=== PATIENT | male | born 1960 | race Caucasian/White ===

== ENCOUNTER 2016-08-23 16:53 | Emergency (ER) | payer OTHER ==
[~2016-08-23] VITALS: Ht 177.8 cm; Wt 75.2 kg
[~2016-08-23 16:53] MED LIST: ADVIL,NUPRIN,M200 MG PO; BACTRIM,SEPT1 TABLET PO; CLONIDINE HCL0.1 MG PO; CYCLOBENZAPRINE10 MG PO; FENTANYL1 EAC5 TD; FLEXERIL10 MG PO; HYDROMORPHONE HC4 MG PO; INDOCIN25 MG PO; INDOMETHACIN50 MG PO; JANTOVEN2.5 MG; KALETRA 200/501 TAB PO; KEFLEX500 MG PO; LIDODERM 5% P1 PATCH TD; LISINOPRIL40 MG PO; LYRICA75 MG PO; METHADONE10 MG PO; METHADONE5 MG PO; MOTRIN400 MG PO; MOTRIN600 MG PO; NAPROSYN500 MG PO; NAPROXEN500 MG PO; NEXIUM40 MG PO; NICOTINE PATCH1 EAC1 TD; NICOTROL INHALE10 MG IH; NOHOMEMEDS; NORCO 5/3251 TABLET PO; OXYCODONE HCL15 MG PO; OXYCODONE HCL5 MG PO; OXYCODONE30 MG; PANTOPRAZOLE SO40 MG PO; PERCOCET 5/31 TABLET PO; PREDNISONE20 MG PO; PROAIR HFA8.5 GM IH; TRAMADOL HCL50 MG PO; TRUVADA1 TABLET PO; ULTRAM50 MG PO; VOLTAREN 1% GE100 GM TP; ZOFRAN ODT4 MG PO; ZOFRAN4 MG PO
[2016-08-23 19:59] LABS: MCH 30.5 PG (29.0-34.0); MCHC 34.4 G/DL (30.0-36.0); MCV 88.8 FL (86-99); MEAN PLAT.VOLUME 10.6 uM^3 (9.0-12.4); PLATELET COUNT 108 K/uL (156-360); RBC DIS.WIDTH-CV 14.2 % (11.8-14.6); RBC DIS.WIDTH-SD 45.1 % (39-53); RED BLOOD COUNT 4.39 M/uL (4.00-5.50); WHITE BLOOD COUNT 5.7 K/uL (4.1-10.2)
[2016-08-23 20:07] LABS: CHLORIDE 102 mEq/L (99-109); POTASSIUM 3.7 mEq/L (3.7-5.4); SODIUM 139 mEq/L (136-147)
[2016-08-23 20:09] LABS: GLUCOSE 126 mg/dL (70-99)
[2016-08-23 20:10] LABS: ANION GAP 11 MEQ/L (2-14)
[2016-08-23 20:12] LABS: GFR ESTIMATE (CALCULATED) > 59 mL/min/
[2016-08-23 20:13] LABS: UREA NITROGEN (BUN) 14 mg/dL (9-23)
[2016-08-23 20:53] LABS: ADD MIUA? NO; BILIRUBIN NEGATIVE; BLOOD NEGATIVE; COLOR YELLOW ((YELLOW)); GLUCOSE (STRIP) NEGATIVE; KETONES NEGATIVE; LEUKOCYTES NEGATIVE; NITRITE NEGATIVE; PROTEIN (STRIP) NEGATIVE; SPECIFIC GRAVITY 1.021 (1.000-1.030); UCUL ADDED? NO
[2016-08-23 23:50] VITALS: BP 146/74
== END 2016-08-24 | disposition home or self-care (01) ==
LOC: EME 16:53
PROVIDERS: Physician Assistant
DX: S16.1XXA Strain of muscle, fascia and tendon at neck level, initial encounter (principal); M54.5 Low back pain; M79.604 Pain in right leg; R51 Headache; V19.49XA Pedal cycle driver injured in collision with other motor vehicles in traffic accident, initial encounter; Y93.55 Activity, bike riding; G89.29 Other chronic pain; F17.200 Nicotine dependence, unspecified, uncomplicated; Z79.891 Long term (current) use of opiate analgesic
CPT/HCPCS: 70450; 72110; 72126; 80048; 81003; 85027; 99281; 99284; J3010; J3360; J7030

== ENCOUNTER 2016-11-13 22:56 | Emergency (ER) | payer OTHER ==
[~2016-11-13] VITALS: Ht 177.8 cm; Wt 72.8 kg
[2016-11-13] MEDS ORDERED: ULTRACET1 TABLET PO (23:46)
[2016-11-13] MEDS ORDERED: MOTRIN800 MG PO (23:46)
[2016-11-13] MEDS ORDERED: CIPRO500 MG PO (23:46)
[2016-11-13 23:55] VITALS: BP 123/74
== END 2016-11-14 00:05 | disposition home or self-care (01) ==
LOC: EME 22:56
DX: S81.812A Laceration without foreign body, left lower leg, initial encounter (principal); W26.8XXA Contact with other sharp object(s), not elsewhere classified, initial encounter; Z23 Encounter for immunization
CPT/HCPCS: 99281; 99284

== ENCOUNTER 2016-11-28 13:06 | Emergency (ER) | payer OTHER ==
[~2016-11-28] VITALS: Ht 177.8 cm; Wt 73.3 kg
[~2016-11-28 13:06] MED LIST changes: +CIPRO500 MG PO; +MOTRIN800 MG PO; +ULTRACET1 TABLET PO
[2016-11-28] MEDS ORDERED: KEFLEX500 MG PO (19:00)
[2016-11-28 19:47] VITALS: BP 176/84
== END 2016-11-28 19:49 | disposition home or self-care (01) ==
LOC: EME 13:06
DX: M79.89 Other specified soft tissue disorders (principal); M79.605 Pain in left leg; M25.562 Pain in left knee; Z48.02 Encounter for removal of sutures; Z98.890 Other specified postprocedural states; F17.200 Nicotine dependence, unspecified, uncomplicated
CPT/HCPCS: 73564; 93971; 99281; 99284; J3010

== ENCOUNTER 2017-01-14 12:07 | Emergency (ER) | payer OTHER ==
[~2017-01-14] VITALS: Ht 177.8 cm; Wt 68.1 kg
[2017-01-14] MEDS ORDERED: GABAPENTIN600 MG PO (13:43)
[2017-01-14] MEDS ORDERED: METHADONE10 MG PO (13:43)
[2017-01-14] MEDS ORDERED: QUETIAPINE FUMA50 MG PO (13:44)
[2017-01-14] MEDS ORDERED: ESCITALOPRAM OX20 MG PO (13:44)
[2017-01-14] MEDS ORDERED: LISINOPRIL-HCT1 EAC3 PO (13:44)
[2017-01-14] MEDS ORDERED: NAPROSYN500 MG PO (15:37)
[2017-01-14] MEDS ORDERED: FLEXERIL10 MG PO (15:37)
[2017-01-14 16:15] VITALS: BP 136/75
== END 2017-01-14 16:27 | disposition home or self-care (01) ==
LOC: EME 12:07
DX: S20.212A Contusion of left front wall of thorax, initial encounter (principal); S40.022A Contusion of left upper arm, initial encounter; S00.01XA Abrasion of scalp, initial encounter; S50.312A Abrasion of left elbow, initial encounter; S60.812A Abrasion of left wrist, initial encounter; W18.09XA Striking against other object with subsequent fall, initial encounter
CPT/HCPCS: 71020; 73080; 73090; 73110; 99281; 99285; J3010

== ENCOUNTER 2017-02-02 17:58 | Emergency (ER) | payer OTHER ==
[~2017-02-02] VITALS: Ht 177.8 cm; Wt 72.6 kg
[~2017-02-02 17:58] MED LIST changes: +ESCITALOPRAM OX20 MG PO; +GABAPENTIN600 MG PO; +LISINOPRIL-HCT1 EAC3 PO; +QUETIAPINE FUMA50 MG PO
[2017-02-02] MEDS ORDERED: VENTOLIN HFA18 GM IH (21:04)
[2017-02-02] MEDS ORDERED: PREDNISONE20 MG PO (21:04)
[2017-02-02] MEDS ORDERED: VIBRAMYCIN100 MG PO (21:04)
[2017-02-02 21:58] VITALS: BP 126/84
== END 2017-02-02 22:11 | disposition home or self-care (01) ==
LOC: EME 17:58
DX: S80.12XD Contusion of left lower leg, subsequent encounter (principal); S80.812D Abrasion, left lower leg, subsequent encounter; L08.9 Local infection of the skin and subcutaneous tissue, unspecified; J40 Bronchitis, not specified as acute or chronic; W23.0XXD Caught, crushed, jammed, or pinched between moving objects, subsequent encounter; F17.200 Nicotine dependence, unspecified, uncomplicated; Z71.6 Tobacco abuse counseling; I10 Essential (primary) hypertension; Z88.1 Allergy status to other antibiotic agents; Z96.652 Presence of left artificial knee joint
CPT/HCPCS: 71020; 73590; 94640; 99281; 99284; J3010; J7512

== ENCOUNTER 2017-05-13 18:46 | Emergency (ER) | payer OTHER ==
[~2017-05-13] VITALS: Ht 177.8 cm; Wt 74.2 kg
[~2017-05-13 18:46] MED LIST changes: +VENTOLIN HFA18 GM IH; +VIBRAMYCIN100 MG PO
[2017-05-13] MEDS ORDERED: MOBIC7.5 MG PO (20:53)
[2017-05-13] MEDS ORDERED: SKELAXIN800 MG PO (20:53)
[2017-05-13 21:17] VITALS: BP 140/80
== END 2017-05-13 21:17 | disposition home or self-care (01) ==
LOC: EME 18:46
DX: S80.02XA Contusion of left knee, initial encounter (principal); S39.012A Strain of muscle, fascia and tendon of lower back, initial encounter; W19.XXXA Unspecified fall, initial encounter; F17.200 Nicotine dependence, unspecified, uncomplicated
CPT/HCPCS: 73564; 99281; 99284; J1885; J3010

== ENCOUNTER → 2017-05-25 | Outpatient (CLI) | payer OTHER ==
[~2017-05-25] MED LIST changes: +MOBIC7.5 MG PO; +SKELAXIN800 MG PO
== END | disposition home or self-care (01) ==
LOC: RAD 19:34
DX: K40.90 Unilateral inguinal hernia, without obstruction or gangrene, not specified as recurrent (principal)
CPT/HCPCS: 76857

== ENCOUNTER 2017-06-04 16:55 | Emergency (ER) | payer OTHER ==
[~2017-06-04] VITALS: Ht 177.8 cm; Wt 76.2 kg
[2017-06-04 17:24] LABS: EOSINOPHIL (%) 0.5 % (0-5); HEMATOCRIT 38.4 % (38.0-50.0); IMMATURE GRANULOCYTE (%) 0.7 % (0.0-0.7); INSTRUMENT ABS NEUTROPHIL CT 4.8 K/uL; LYMPHOCYTE COUNT 0.5 K/uL (1.0-2.8); MCH 29.8 PG (29.0-34.0); MCHC 33.3 G/DL (30.0-36.0); MCV 89.3 FL (86-99); MONOCYTE (%) 11.9 % (3-12); MONOCYTE COUNT 0.7 K/uL (0-0.8); NEUTROPHIL (%) 79.1 % (45-76); NEUTROPHIL COUNT 4.8 K/uL (1.8-6.4); RBC DIS.WIDTH-SD 42.5 % (39-53)
[2017-06-04 17:31] LABS: AMYLASE 46 IU/L (1-118); CHLORIDE 99 mEq/L (99-109); POTASSIUM 4.1 mEq/L (3.7-5.4); SODIUM 135 mEq/L (136-147)
[2017-06-04 17:33] LABS: GLUCOSE 100 mg/dL (70-99)
[2017-06-04 17:34] LABS: ANION GAP 11 MEQ/L (2-14)
[2017-06-04 17:36] LABS: SERUM ETHYL ALCOHOL 11 mg/dL
[2017-06-04 17:37] LABS: GFR ESTIMATE (CALCULATED) > 59 mL/min/
[2017-06-04 17:38] LABS: UREA NITROGEN (BUN) 11 mg/dL (9-23)
[2017-06-04 17:40] LABS: LIPASE 16 U/L (1.0-51.0)
[2017-06-04 17:57] LABS: MEAN PLAT.VOLUME 10.1 uM^3 (9.0-12.4); PLAT.SUFFICIENCY DECREASED
[2017-06-04 18:41] LABS: ADD MIUA? NO; BILIRUBIN NEGATIVE; BLOOD NEGATIVE; COLOR YELLOW ((YELLOW)); GLUCOSE (STRIP) NEGATIVE; KETONES 5; LEUKOCYTES NEGATIVE; NITRITE NEGATIVE; PROTEIN (STRIP) NEGATIVE; UCUL ADDED? NO; UROBILINOGEN 0.2 MG/DL (0.2-1.0)
[2017-06-04 18:49] LABS: ADD MEDTOX COMMENT Y; AMPHETAMINE NEGATIVE (500 ng/mL); BARBITURATES NEGATIVE (200 ng/mL); BENZODIAZEPINES PRESUMPTIVE POSITIVE (150 ng/mL); COCAINE PRESUMPTIVE POSITIVE (150 ng/mL); INTERNAL CONTROLS VALID? YES; METHADONE PRESUMPTIVE POSITIVE (200 ng/mL); METHAMPHETAMINE NEGATIVE (500 ng/mL); OPIATES (MORPHINE) PRESUMPTIVE POSITIVE (100 ng/mL); OXYCODONE NEGATIVE (100 ng/mL); PHENCYCLIDINE NEGATIVE (25 ng/mL); PROPOXYPHENE NEGATIVE (300 ng/mL); THC CANNABINOIDS NEGATIVE (50 ng/mL); TRICYCLIC ANTIDEPRESSANTS NEGATIVE (300 ng/mL)
[2017-06-04 18:52] LABS: PLATELET COUNT 99 K/uL (156-360)
[2017-06-04 19:21] LABS: BENZODIAZEPINES, URINE SCREEN POSITIVE (200 ng/mL)
[2017-06-04 21:03] VITALS: BP 142/65
== END 2017-06-04 21:03 | disposition home or self-care (01) ==
LOC: EME
PROVIDERS: Emergency Medicine
PROC: 0HQ1XZZ Repair Face Skin, External Approach (ICD-10-PCS; principal; 2017-06-04)
DX: S01.112A Laceration without foreign body of left eyelid and periocular area, initial encounter (principal); S01.312A Laceration without foreign body of left ear, initial encounter; S00.01XA Abrasion of scalp, initial encounter; S30.0XXA Contusion of lower back and pelvis, initial encounter; F19.10 Other psychoactive substance abuse, uncomplicated; Y00.XXXA Assault by blunt object, initial encounter; Y92.512 Supermarket, store or market as the place of occurrence of the external cause; M79.89 Other specified soft tissue disorders; I10 Essential (primary) hypertension; B19.20 Unspecified viral hepatitis C without hepatic coma; G89.29 Other chronic pain; F17.200 Nicotine dependence, unspecified, uncomplicated
CPT/HCPCS: 70450; 71010; 72125; 72131; 73560; 73564; 73610; 80048; 81003; 82150; 83690; 84999; 85025; 86850; 86900; 86901; 99281; 99285; G0480

== ENCOUNTER 2017-10-24 14:33 | Emergency (ER) | payer OTHER ==
[~2017-10-24] VITALS: Ht 177.8 cm; Wt 76.6 kg
[2017-10-24 15:03] LABS: MCH 30.7 PG (29.0-34.0); MCHC 34.1 G/DL (30.0-36.0); MCV 89.9 FL (86-99); PLATELET COUNT 110 K/uL (156-360); RBC DIS.WIDTH-CV 13.5 % (11.8-14.6); RBC DIS.WIDTH-SD 44.4 % (39-53); RED BLOOD COUNT 4.56 M/uL (4.00-5.50)
[2017-10-24 15:13] LABS: ALBUMIN 4.1 g/dL (3.2-4.8); CHLORIDE 107 mEq/L (99-109); SODIUM 143 mEq/L (136-147)
[2017-10-24 15:15] LABS: GLUCOSE 114 mg/dL (70-99)
[2017-10-24 15:16] LABS: TOTAL PROTEIN 6.8 g/dL (6.4-8.3)
[2017-10-24 15:17] LABS: TOTAL BILIRUBIN 0.6 mg/dL (0.0-1.0)
[2017-10-24 15:19] LABS: ALKALINE PHOSPHATASE 97 IU/L (3-129); CREATININE 0.8 mg/dL (0.6-1.3); GFR ESTIMATE (CALCULATED) > 59 mL/min/ (58.99-99999)
[2017-10-24 15:20] LABS: UREA NITROGEN (BUN) 12 mg/dL (9-23)
[2017-10-24 15:21] LABS: AST (GOT) 25 IU/L (2-34)
[2017-10-24 15:22] LABS: ALT (GPT) 21 IU/L (3-49)
[2017-10-24 15:38] LABS: APPEARANCE CLEAR ((CLEAR)); BILIRUBIN NEGATIVE; BLOOD NEGATIVE; COLOR YELLOW ((YELLOW)); GLUCOSE (STRIP) NEGATIVE; KETONES NEGATIVE; LEUKOCYTES NEGATIVE; NITRITE NEGATIVE; PROTEIN (STRIP) NEGATIVE; UCUL ADDED? NO; UROBILINOGEN 0.2 MG/DL (0.2-1.0)
[2017-10-24] MEDS ORDERED: ULTRAM50 MG PO (18:25)
[2017-10-24 19:01] VITALS: BP 141/84
== END 2017-10-24 19:04 | disposition home or self-care (01) ==
LOC: EME 14:33
DX: K40.90 Unilateral inguinal hernia, without obstruction or gangrene, not specified as recurrent (principal); K74.60 Unspecified cirrhosis of liver; R91.1 Solitary pulmonary nodule; R16.1 Splenomegaly, not elsewhere classified; D17.24 Benign lipomatous neoplasm of skin and subcutaneous tissue of left leg; I70.0 Atherosclerosis of aorta; G89.29 Other chronic pain; M54.9 Dorsalgia, unspecified; M47.9 Spondylosis, unspecified; B19.20 Unspecified viral hepatitis C without hepatic coma; F17.200 Nicotine dependence, unspecified, uncomplicated; Z98.1 Arthrodesis status; Z96.652 Presence of left artificial knee joint; Z90.49 Acquired absence of other specified parts of digestive tract; Z88.1 Allergy status to other antibiotic agents
CPT/HCPCS: 74177; 80053; 81003; 85027; 99281; 99284

== ENCOUNTER 2017-12-08 03:40 | Emergency (ER) | payer OTHER ==
[~2017-12-08] VITALS: Ht 177.8 cm; Wt 76.1 kg
[2017-12-08 04:41] LABS: HEMATOCRIT 40.8 % (38.0-50.0); HEMOGLOBIN 14.1 G/DL (12.5-16.6); MCH 31.4 PG (29.0-34.0); MCHC 34.6 G/DL (30.0-36.0); MCV 90.9 FL (86-99); PLATELET COUNT 90 K/uL (156-360); RBC DIS.WIDTH-CV 13.2 % (11.8-14.6); RBC DIS.WIDTH-SD 43.9 % (39-53); RED BLOOD COUNT 4.49 M/uL (4.00-5.50); WHITE BLOOD COUNT 6.5 K/uL (4.1-10.2)
[2017-12-08 04:57] LABS: ALBUMIN 4.4 g/dL (3.2-4.8); CHLORIDE 103 mEq/L (99-109); POTASSIUM 4.2 mEq/L (3.7-5.4); SODIUM 141 mEq/L (136-147)
[2017-12-08 04:59] LABS: GLUCOSE 76 mg/dL (70-99); TOTAL PROTEIN 7.1 g/dL (6.4-8.3)
[2017-12-08 05:01] LABS: TOTAL BILIRUBIN 0.5 mg/dL (0.0-1.0)
[2017-12-08 05:03] LABS: ALKALINE PHOSPHATASE 91 IU/L (3-129); CREATININE 0.8 mg/dL (0.6-1.3); GFR ESTIMATE (CALCULATED) > 59 mL/min/ (58.99-99999)
[2017-12-08 05:04] LABS: UREA NITROGEN (BUN) 14 mg/dL (9-23)
[2017-12-08 05:05] LABS: AST (GOT) 24 IU/L (2-34)
[2017-12-08 05:06] LABS: ALT (GPT) 24 IU/L (3-49)
[2017-12-08 06:28] LABS: APPEARANCE CLEAR ((CLEAR)); BILIRUBIN NEGATIVE; BLOOD NEGATIVE; COLOR YELLOW ((YELLOW)); GLUCOSE (STRIP) NEGATIVE; KETONES NEGATIVE; LEUKOCYTES NEGATIVE; NITRITE NEGATIVE; PROTEIN (STRIP) NEGATIVE; SPECIFIC GRAVITY 1.009 (1.000-1.030); UCUL ADDED? NO; UROBILINOGEN 0.2 MG/DL (0.2-1.0)
[2017-12-08] MEDS ORDERED: PERCOCET 5/31 TABLET PO (06:43)
[2017-12-08 07:16] VITALS: BP 139/89
== END 2017-12-08 07:17 | disposition home or self-care (01) ==
LOC: EME 03:40
DX: N50.811 Right testicular pain (principal); B19.20 Unspecified viral hepatitis C without hepatic coma; F17.200 Nicotine dependence, unspecified, uncomplicated; Z96.652 Presence of left artificial knee joint; Z90.49 Acquired absence of other specified parts of digestive tract
CPT/HCPCS: 76870; 80053; 81003; 85027; 99281; 99284

== ENCOUNTER 2017-12-16 10:19 | Emergency (ER) | payer OTHER ==
[~2017-12-16] VITALS: Ht 177.8 cm; Wt 74.5 kg
[2017-12-16] MEDS ORDERED: GABAPENTIN300 MG PO (11:02)
[2017-12-16] MEDS ORDERED: TESSALON PERLE100 MG PO (12:23)
[2017-12-16] MEDS ORDERED: ZITHROMAX Z-PA250 MG PO (12:23)
[2017-12-16] MEDS ORDERED: VENTOLIN HFA18 GM IH (12:24)
[2017-12-16 12:36] VITALS: BP 138/87
== END 2017-12-16 12:43 | disposition home or self-care (01) ==
LOC: EME 10:19
DX: J20.9 Acute bronchitis, unspecified (principal); M54.9 Dorsalgia, unspecified; G89.29 Other chronic pain; F17.200 Nicotine dependence, unspecified, uncomplicated; B19.20 Unspecified viral hepatitis C without hepatic coma; Z79.891 Long term (current) use of opiate analgesic; Z98.1 Arthrodesis status; Z96.652 Presence of left artificial knee joint; Z87.19 Personal history of other diseases of the digestive system; Z90.49 Acquired absence of other specified parts of digestive tract; Z87.81 Personal history of (healed) traumatic fracture; Z88.1 Allergy status to other antibiotic agents
CPT/HCPCS: 71046; 94640; 99281; 99284; J1100

== ENCOUNTER 2017-12-16 18:17 | Emergency (ER) | payer OTHER ==
[~2017-12-16] VITALS: Ht 177.8 cm; Wt 74.8 kg
[~2017-12-16 18:17] MED LIST changes: +GABAPENTIN300 MG PO; +TESSALON PERLE100 MG PO; +ZITHROMAX Z-PA250 MG PO
[2017-12-16 19:53] LABS: HEMATOCRIT 41.7 % (38.0-50.0); HEMOGLOBIN 14.7 G/DL (12.5-16.6); MCH 30.9 PG (29.0-34.0); MCHC 35.3 G/DL (30.0-36.0); MCV 87.8 FL (86-99); PLATELET COUNT 89 K/uL (156-360); RBC DIS.WIDTH-CV 12.8 % (11.8-14.6); RBC DIS.WIDTH-SD 41.5 % (39-53); RED BLOOD COUNT 4.75 M/uL (4.00-5.50); WHITE BLOOD COUNT 2.9 K/uL (4.1-10.2)
[2017-12-16 20:19] LABS: ALBUMIN 4.5 g/dL (3.2-4.8); CHLORIDE 105 mEq/L (99-109); SODIUM 139 mEq/L (136-147)
[2017-12-16 20:21] LABS: GLUCOSE 173 mg/dL (70-99); TOTAL PROTEIN 7.5 g/dL (6.4-8.3)
[2017-12-16 20:23] LABS: TOTAL BILIRUBIN 0.4 mg/dL (0.0-1.0)
[2017-12-16 20:25] LABS: ALKALINE PHOSPHATASE 91 IU/L (3-129); CREATININE 0.8 mg/dL (0.6-1.3); GFR ESTIMATE (CALCULATED) > 59 mL/min/ (58.99-99999)
[2017-12-16 20:26] LABS: UREA NITROGEN (BUN) 12 mg/dL (9-23)
[2017-12-16 20:27] LABS: AST (GOT) 32 IU/L (2-34)
[2017-12-16 20:28] LABS: ALT (GPT) 23 IU/L (3-49)
[2017-12-16 21:26] VITALS: BP 124/80
== END 2017-12-16 21:28 | disposition home or self-care (01) ==
LOC: EME 18:17
PROVIDERS: Emergency Medicine Emergency Medical Services
DX: M54.9 Dorsalgia, unspecified (principal); M54.2 Cervicalgia; R51 Headache; M79.606 Pain in leg, unspecified; Z98.1 Arthrodesis status; I10 Essential (primary) hypertension; F17.200 Nicotine dependence, unspecified, uncomplicated
CPT/HCPCS: 80053; 85027; 99281; 99284; J3010

== ENCOUNTER 2018-02-06 08:54 | Emergency (ER) | payer OTHER ==
[~2018-02-06] VITALS: Ht 177.8 cm; Wt 74.5 kg
[2018-02-06 08:57] VITALS: BP 143/90
== END 2018-02-06 11:30 | disposition left against medical advice (07) ==
LOC: EME 08:54
DX: S09.90XA Unspecified injury of head, initial encounter (principal); M50.321 Other cervical disc degeneration at C4-C5 level; M47.892 Other spondylosis, cervical region; X58.XXXA Exposure to other specified factors, initial encounter; Z53.20 Procedure and treatment not carried out because of patient's decision for unspecified reasons; F17.200 Nicotine dependence, unspecified, uncomplicated
CPT/HCPCS: 70450; 72125; J0780; J1200; J1885; J7120

== ENCOUNTER 2018-02-10 12:09 | Emergency (ER) | payer OTHER ==
[~2018-02-10] VITALS: Ht 177.8 cm; Wt 75.3 kg
[2018-02-10] MEDS ORDERED: BACLOFEN10 MG PO (14:38)
[2018-02-10] MEDS ORDERED: MEDROL DOSEPAK4 MG PO (14:38)
[2018-02-10] MEDS ORDERED: LIDODERM 5% P1 PATCH TD (14:38)
[2018-02-10 15:13] VITALS: BP 123/89
[2018-02-10] MEDS ORDERED: VALIUM2 MG PO (15:14)
== END 2018-02-10 15:15 | disposition home or self-care (01) ==
LOC: EME 12:09
DX: S16.1XXA Strain of muscle, fascia and tendon at neck level, initial encounter (principal); F07.81 Postconcussional syndrome; M50.30 Other cervical disc degeneration, unspecified cervical region; Y00.XXXA Assault by blunt object, initial encounter; Z88.1 Allergy status to other antibiotic agents
CPT/HCPCS: 99281; 99284; J2930

== ENCOUNTER 2018-02-24 08:15 | Emergency (ER) | payer OTHER ==
[~2018-02-24] VITALS: Ht 177.8 cm; Wt 74.2 kg
[~2018-02-24 08:15] MED LIST changes: +BACLOFEN10 MG PO; +MEDROL DOSEPAK4 MG PO; +VALIUM2 MG PO
[2018-02-24] MEDS ORDERED: NAPROSYN500 MG PO (09:38)
[2018-02-24] MEDS ORDERED: ULTRAM50 MG PO (09:38)
[2018-02-24] MEDS ORDERED: PREDNISONE20 MG PO (09:38)
[2018-02-24 09:45] VITALS: BP 134/85
[2018-02-24] MEDS ORDERED: SKELAXIN800 MG PO (10:26)
== END 2018-02-24 10:30 | disposition home or self-care (01) ==
LOC: EME 08:15
DX: M54.2 Cervicalgia (principal); Z88.1 Allergy status to other antibiotic agents
CPT/HCPCS: 99281; 99283; J1885; J7512

== ENCOUNTER 2018-03-29 08:48 | Emergency (ER) | payer OTHER ==
[~2018-03-29] VITALS: Ht 177.8 cm; Wt 75.4 kg
[2018-03-29] MEDS ORDERED: PREDNISONE50 MG PO (10:28)
[2018-03-29] MEDS ORDERED: ZITHROMAX Z-PA250 MG PO (10:28)
[2018-03-29 10:38] VITALS: BP 140/85
== END 2018-03-29 10:44 | disposition home or self-care (01) ==
LOC: EME 08:48
DX: J20.9 Acute bronchitis, unspecified (principal); R51 Headache; I10 Essential (primary) hypertension; B19.20 Unspecified viral hepatitis C without hepatic coma; F17.210 Nicotine dependence, cigarettes, uncomplicated; Z96.659 Presence of unspecified artificial knee joint; Z88.1 Allergy status to other antibiotic agents
CPT/HCPCS: 71046; 93005; 94640; 99281; 99285; J7512